=== PATIENT | female | born 1980 ===

== ENCOUNTER 2020-05-25 09:45 | Inpatient (IN) | payer OTHER ==
[~2020-05-25] VITALS: Ht 162.6 cm; Wt 3.2 kg
[~2020-05-25 09:45] MED LIST: NON
[2020-06-01] MEDS ORDERED: OBTREX DHA COM1 EACH PO (11:21)
[2020-06-01] MEDS ORDERED: VALTREX1000 MG PO (11:22)
== END 2020-06-18 14:39 | disposition home or self-care (01) | DRG 785 ==
LOC: O/R 06-16 06:55 → SURG-SUITE 06-16 06:55 → OB/GYN 06-16 09:45 → SURG-SUITE 06-16 16:53
PROVIDERS: ADMIT Obstetrics & Gynecology Maternal & Fetal Medicine; ATTEND Obstetrics & Gynecology Maternal & Fetal Medicine
PROC: 0UB70ZZ Excision of Bilateral Fallopian Tubes, Open Approach (ICD-10-PCS; 2020-06-16)
PROC: 4A1HXFZ Monitoring of Products of Conception, Cardiac Rhythm, External Approach (ICD-10-PCS; 2020-06-16)
PROC: 10D00Z1 Extraction of Products of Conception, Low, Open Approach (ICD-10-PCS; principal; 2020-06-16 12:30)
DX: O34.211 Maternal care for low transverse scar from previous cesarean delivery (principal); Z30.2 Encounter for sterilization; Z37.0 Single live birth; Z3A.39 39 weeks gestation of pregnancy